=== PATIENT | male | born 1980 | race Caucasian/White ===

== ENCOUNTER 2017-04-12 09:53 | Emergency (ER) | payer OTHER ==
[2017-04-12 10:48] VITALS: BP 110/84
--- NOTE | 2017-04-12 10:53 | UC ---
Respiratory Complaint HPI - HPI Summary HPI Summary: cough for 10 days seems to be getting worse, fatigued throat rare, chest lobato no fever - History of Current Complaint Chief Complaint: UCRespiratory Stated Complaint: SORE THROAT Time Seen by Provider: 04/12/17 10:51 Hx Obtained From: Patient Onset/Duration: Gradual Onset, Lasting Days, Still Present, Worse Since - past 3 days Timing: Constant Severity Initially: Mild Severity Currently: Moderate Pain Intensity: 8 Pain Scale Used: 0-10 Numeric Character: Cough: Nonproductive Aggravating Factors: Nothing Alleviating Factors: Nothing Associated Signs And Symptoms: Positive: Chills, Pleuritic Chest Pain - Allergies/Home Medications Allergies/Adverse Reactions: Allergies Allergy/AdvReac Type Severity Reaction Status Date / Time Penicillins Allergy Difficulty Verified 04/12/17 10:33 Breathing Home Medications: Home Medications Dextromethorphan-Phenylephrine [Day Time Multi-Symptom Co 10-5-325 mg/15Ml] 1 liq PO PRN 04/12/17 [History] Pseudoephedrine-Guaifenesin [Mucinex D 60-600 mg] 1 tab PO PRN 04/12/17 [History ] PMH/Surg Hx/FS Hx/Imm Hx Previously Healthy: Yes - Surgical History Surgical History: Yes Surgery Procedure, Year, and Place: APPENDECTOMY - Family History Known Family History: Positive: None - Social History Occupation: Employed Full-time Lives: With Family Alcohol Use: None Substance Use Type: None Smoking Status (MU): Former Smoker Amount Used/How Often: "I'm not a smoker" When Did the Patient Quit Smoking/Using Tobacco: 2015 - Immunization History Most Recent Influenza Vaccination: FALL 2016 Review of Systems Constitutional: Fatigue Skin: Negative Eyes: Negative, Photophobia Respiratory: Cough Cardiovascular: Negative Gastrointestinal: Negative Genitourinary: Negative Motor: Negative Neurovascular: Negative Musculoskeletal: Negative Neurological: Negative Psychological: Negative Is Patient Immunocompromised?: No All Other Systems Reviewed And Are Negative: Yes Physical Exam Triage Information Reviewed: Yes Appearance: Well-Nourished, Ill-Appearing, Pain Distress Vital Signs: Initial Vital Signs Temp 99 F 04/12/17 10:36 Pulse 98 04/12/17 10:36 Resp 18 04/12/17 10:36 BP 110/84 04/12/17 10:36 Pulse Ox 98 04/12/17 10:36 Vital Signs Reviewed: Yes Eye Exam: Normal Eyes: Positive: Conjunctiva Clear ENT Exam: Normal ENT: Positive: Normal ENT inspection, Hearing grossly normal, Pharynx normal, Nasal congestion, TMs normal, Uvula midline. Negative: Nasal drainage, Tonsillar swelling, Tonsillar exudate, Trismus, Muffled voice, Hoarse voice, Dental tenderness, Sinus tenderness Dental Exam: Normal Neck exam: Normal Neck: Positive: Supple, Nontender, No Lymphadenopathy Respiratory Exam: Normal Respiratory: Positive: Chest non-tender, Lungs clear, Normal breath sounds, No respiratory distress, No accessory muscle use Cardiovascular Exam: Normal Cardiovascular: Positive: RRR, No Murmur, Pulses Normal, Brisk Capillary Refill Musculoskeletal Exam: Normal Musculoskeletal: Positive: Strength Intact, ROM Intact, No Edema Neurological Exam: Normal Neurological: Positive: Alert, Muscle Tone Normal Psychological Exam: Normal Skin Exam: Normal UC Diagnostic Evaluation - Laboratory O2 Sat by Pulse Oximetry: 98 Respiratory Course/Dx - Course Course Of Treatment: Albuterol with spacer, prednisone, zithromax, rest increase fluid, follow with pcp prn - Differential Dx/Diagnosis Provider Diagnoses: Bronchitis with bronchospasm Discharge - Discharge Plan Condition: Stable Disposition: HOME Prescriptions: Albuterol HFA INHALER* [Ventolin HFA Inhaler*] 2 puff INH Q4H PRN #1 mdi PRN Reason: cough/chest tightness Azithromycin TAB* [Zithromax TAB (Z-CHUCK) 250 mg #6 tabs] 2 tab PO .TODAY, THEN 1 DAILY #1 chuck predniSONE TAB* [Deltasone TAB*] 60 mg PO DAILY #15 tab Patient Education Materials: Acute Bronchitis (ED), Bronchospasm (ED), How to Use a Metered-Dose Inhaler and a Spacer (ED) Forms: *Work Release Referrals: Karol Arauz MD [Primary Care Provider] - If Needed
== END 2017-04-12 11:22 | disposition home or self-care (01) ==
LOC: UCCORT 09:53
DX: J20.9 Acute bronchitis, unspecified (principal); Z88.0 Allergy status to penicillin; Z87.891 Personal history of nicotine dependence
CPT/HCPCS: 99212; G0463

== ENCOUNTER 2018-11-14 20:33 | Emergency (ER) | payer OTHER ==
[2018-11-14 21:23] VITALS: BP 124/76
[2018-11-14] MEDS ORDERED: Lidocaine 1% MPF ** 5 ML VIAL INJ ONE (21:51)
--- NOTE | 2018-11-14 21:55 | UC ---
UC General HPI - HPI Summary HPI Summary: 38-year-old male comes in with a chief complaint of a painful hemorrhoid. Patient was lifting heavy weights. When he got home and had a bowel movement he had quite a bit of pain and he felt a hemorrhoid. He used some over-the- counter preparations which did not help. Pain is better when he stands up. Trying to sit makes the pain worse. He's had a similar situation about 7 months ago and he hemorrhoid was thrombosed and it was opened up and evacuated. - History of Current Complaint Chief Complaint: UCGU Stated Complaint: PERSONAL Time Seen by Provider: 11/14/18 21:37 Pain Intensity: 6 - Allergy/Home Medications Allergies/Adverse Reactions: Allergies Allergy/AdvReac Type Severity Reaction Status Date / Time Penicillins Allergy Hives Verified 11/14/18 21:15 PMH/Surg Hx/FS Hx/Imm Hx Previously Healthy: Yes - HEMORRHOIDS - Surgical History Surgical History: Yes Surgery Procedure, Year, and Place: APPENDECTOMY - Family History Known Family History: Positive: None - Social History Alcohol Use: None Substance Use Type: None Smoking Status (MU): Former Smoker Type: Smokeless Tobacco Amount Used/How Often: "I'm not a smoker" When Did the Patient Quit Smoking/Using Tobacco: 2016 - Immunization History Most Recent Influenza Vaccination: FALL 2016 Review of Systems All Other Systems Reviewed And Are Negative: Yes Constitutional: Positive: Negative Skin: Positive: Other - SEE HPI Eyes: Positive: Negative ENT: Positive: Negative Respiratory: Positive: Negative Cardiovascular: Positive: Negative Gastrointestinal: Positive: Negative Genitourinary: Positive: Negative Motor: Positive: Negative Neurovascular: Positive: Negative Musculoskeletal: Positive: Negative Neurological: Positive: Negative Psychological: Positive: Negative Is Patient Immunocompromised?: No Physical Exam Triage Information Reviewed: Yes Appearance: Well-Appearing, Well-Nourished, Pain Distress - MILD Vital Signs: Initial Vital Signs Temp 99.3 F 11/14/18 21:17 Pulse 85 11/14/18 21:17 Resp 20 11/14/18 21:17 BP 124/76 11/14/18 21:17 Pulse Ox 98 11/14/18 21:17 Vital Signs Reviewed: Yes Eye Exam: Normal Eyes: Positive: Conjunctiva Clear Neck: Positive: Supple Respiratory: Positive: No respiratory distress Musculoskeletal: Positive: Strength Intact, ROM Intact Neurological: Positive: Alert, Muscle Tone Normal Psychological: Positive: Age Appropriate Behavior Skin: Positive: Other - Patient has a thrombosed hemorrhoid approximately 1 cm diameter. Course/Dx - Course Course Of Treatment: We discussed different treatments for hemorrhoids. In the past the patient's had the clot excised from the hemorrhoid and it helped him. He prefers to have that treatment tonight. We discussed risks and benefits to include continued bleeding pain infection. I excised the thrombus by prepping with Betadine 3 and numbing it with 1% lidocaine without. I have the hemorrhoid with a #11 blade and excised the thrombus. Direct pressure with gauze was then applied. Patient tolerated procedure well. Plan is to follow-up with surgery. I explained to him again that if he worsens with continued bleeding pain fever does not feel well he needs to go the emergency department right away. - Diagnoses Provider Diagnosis: Thrombosed hemorrhoids Discharge - Sign-Out/Discharge Documenting (check all that apply): Patient Departure All imaging exams completed and their final reports reviewed: No Studies - Discharge Plan Condition: Stable Disposition: HOME Prescriptions: Hydrocortisone Acetate [Anucort-Hc] 25 mg PA BID #30 sup Patient Education Materials: Hemorrhoids (ED) Referrals: Harjit Cuenca MD [Medical Doctor] - Additional Instructions: FOLLOW UP WITH SURGERY, DR CUENCA. CALL TOMORROW TO ARRANGE FOLLOW UP. GO TO THE EMERGENCY DEPARTMENT IF WORSE; BLEEDING, PAIN, FEVER, YOU FEEL ILL OR ANY QUESTIONS OR CONCERNS. - Billing Disposition and Condition Condition: STABLE Disposition: Home
== END 2018-11-14 22:42 | disposition home or self-care (01) ==
LOC: UCCORT 20:33
DX: K64.5 Perianal venous thrombosis (principal); Z88.0 Allergy status to penicillin; Z87.891 Personal history of nicotine dependence
CPT/HCPCS: 46083; 99212; G0463